=== PATIENT | male | born 1960 | race Caucasian/White ===

== ENCOUNTER → 2021-10-02 | Outpatient (CLI) | payer BC ==
[~2021-10-02] MED LIST: HYDRALAZINE HCL50 MG PO; HYDROCODON-ACE1 EAC6 PO; LOSARTAN POTAS100 MG PO; MIRTAZAPINE15 MG PO; PROAIR HFA8.5 GM INH; SYMBICORT 16010.2 GM INH; TAMIFLU75 MG PO
[2021-10-02 10:04] LABS: HEMOGLOBIN 18.5 gm/dl (14.0-17.5); RED BLOOD COUNT 5.34 M/UL (4.20-5.50); WHITE BLOOD COUNT 8.5 K/UL (4.5-11.0)
[2021-10-02 10:19] LABS: BUN/CREATININE RATIO 12 (0-10)
== END ==
LOC: LAB 09:44
PROVIDERS: Family Medicine
DX: R06.00 Dyspnea, unspecified (principal); R91.8 Other nonspecific abnormal finding of lung field
CPT/HCPCS: 36415; 71046; 80048; 85025

== ENCOUNTER 2021-10-05 11:18 | Inpatient (IN) | payer BC ==
[~2021-10-05] VITALS: Ht 175.3 cm; Wt 86.2 kg
[2021-10-05 12:58] LABS: HEMOGLOBIN 16.8 gm/dl (14.0-17.5); RED BLOOD COUNT 4.87 M/UL (4.20-5.50)
[2021-10-05 13:20] LABS: BUN/CREATININE RATIO 23 (0-10)
[2021-10-05] MEDS ORDERED: HYDROCODON-ACE1 EAC6 PO (16:02)
[2021-10-05] MEDS ORDERED: PROAIR HFA8.5 GM INH (16:03)
[2021-10-05] MEDS ORDERED: TAMIFLU75 MG PO (16:03)
[2021-10-05] MEDS ORDERED: LOSARTAN POTAS100 MG PO (16:03)
[2021-10-05] MEDS ORDERED: HYDRALAZINE HCL50 MG PO (16:04)
[2021-10-05] MEDS ORDERED: MIRTAZAPINE15 MG PO (16:04)
[2021-10-05] MEDS ORDERED: SYMBICORT 16010.2 GM INH (16:04)
[2021-10-06 08:23] LABS: HEMOGLOBIN 16.2 gm/dl (14.0-17.5); RED BLOOD COUNT 4.75 M/UL (4.20-5.50); WHITE BLOOD COUNT 4.3 K/UL (4.5-11.0)
[2021-10-06 08:49] LABS: BUN/CREATININE RATIO 32 (0-10)
[2021-10-07 07:36] LABS: HEMOGLOBIN 14.9 gm/dl (14.0-17.5); RED BLOOD COUNT 4.54 M/UL (4.20-5.50)
[2021-10-07 07:40] LABS: WHITE BLOOD COUNT 7.4 K/UL (4.5-11.0)
[2021-10-07 08:07] LABS: BUN/CREATININE RATIO 38 (0-10)
--- NOTE | 2021-10-08 02:12 | NUR ---
PT'S O2 SATURATION ON ROOM AIR WHILE SLEEPING REMAINED AT AROUND 88%. PT NOT DISPLAYING ANY S/S OF DISTRESS. PLACED PT BACK ON 2L NC. PT'S O2 SATURATION RETURNED TO 91%.
[2021-10-08 02:57] LABS: HEMOGLOBIN 13.6 gm/dl (14.0-17.5); WHITE BLOOD COUNT 8.3 K/UL (4.5-11.0)
[2021-10-08 03:07] LABS: RED BLOOD COUNT 4.05 M/UL (4.20-5.50)
[2021-10-08 03:32] LABS: BUN/CREATININE RATIO 39 (0-10)
[2021-10-08] MEDS ORDERED: DOXYCYCLINE HY100 M2 PO (15:50)
[2021-10-08] MEDS ORDERED: BENZONATATE100 MG PO (15:50)
[2021-10-08] MEDS ORDERED: ASPIRIN EC81 MG PO (15:50)
== END 2021-10-08 18:30 | disposition home or self-care (01) | DRG 193 ==
LOC: ER1 11:18 → MED SURG 4 14:45 → CDU 14:45 → MED SURG 4 16:51
PROVIDERS: Family Medicine; Internal Medicine; Physician Assistant; ADMIT Internal Medicine
DX: J10.08 Influenza due to other identified influenza virus with other specified pneumonia (principal); J96.01 Acute respiratory failure with hypoxia; F11.20 Opioid dependence, uncomplicated; N17.9 Acute kidney failure, unspecified; J15.9 Unspecified bacterial pneumonia; M51.36 Other intervertebral disc degeneration, lumbar region; J44.0 Chronic obstructive pulmonary disease with (acute) lower respiratory infection; E86.0 Dehydration; I11.0 Hypertensive heart disease with heart failure; I50.9 Heart failure, unspecified; F17.200 Nicotine dependence, unspecified, uncomplicated; Z20.822 Contact with and (suspected) exposure to COVID-19; Z98.890 Other specified postprocedural states; Z88.0 Allergy status to penicillin; Z88.8 Allergy status to other drugs, medicaments and biological substances; Z88.1 Allergy status to other antibiotic agents; Z82.49 Family history of ischemic heart disease and other diseases of the circulatory system; Z79.82 Long term (current) use of aspirin; Z79.899 Other long term (current) drug therapy; Z71.6 Tobacco abuse counseling
CPT/HCPCS: 36415; 36600; 71045; 80048; 80053; 82550; 82553; 82803; 83605; 83874; 83880; 84484; 85025; 85027; 87040; 93005; 94640; 94664; 94760; 96374; 96375; 99285; J0696; J1650; J2930; J7030; U0002